=== PATIENT | male | born 1960 | race Asian ===

== ENCOUNTER → 2016-11-02 | Outpatient (CLI) | payer MEDICARE, OTHER ==
[~2016-11-02] MED LIST: AMLO-512 PO; ASPI81 PO; ATOR40TA28 PO; B CO1CAP4 PO; CARV12 PO; INSLAN SQ; SEVEC800 PO; VITAD1000 PO
== END | disposition home or self-care (01) ==
LOC: RADPV 10:13
PROVIDERS: ATTEND Hospitalist
DX: I70.0 Atherosclerosis of aorta (principal); Z95.0 Presence of cardiac pacemaker
CPT/HCPCS: 71020

== ENCOUNTER 2017-07-26 23:55 | Inpatient (IN) | payer BC, OTHER ==
[~2017-07-26] VITALS: Ht 167.6 cm; Wt 82.7 kg
[2017-07-27] MEDS ORDERED: METO2.5T2 PO
[2017-07-27 00:39] LABS: BASOPHILS % (AUTO) 0.9 % (0.0-2.0); EOSINOPHILS % (AUTO) 4.3 % (1.0-6.0); HEMATOCRIT 33.8 % (41-53); HEMOGLOBIN 11.7 g/dL (13.5-17.5); LYMPHOCYTES # (AUTO) 1.9 K/uL (1.0-4.8); LYMPHOCYTES % (AUTO) 25.5 % (22.0-44.0); MEAN CORPUSCULAR HEMOGLOBIN 31.8 pg (26.0-34.0); MEAN CORPUSCULAR HGB CONC 34.6 G/dL (31.0-37.0); MEAN CORPUSCULAR VOLUME 92 fL (80-100); MONOCYTES # (AUTO) 0.6 K/uL (0.1-1.0); MONOCYTES % (AUTO) 8.3 % (2.0-9.0); NEUTROPHILS # (AUTO) 4.5 K/uL (1.8-7.7); PLATELET COUNT (AUTO) 237 K/uL (150-450); RED BLOOD CELL COUNT(AUTO) 3.68 MIL/uL (4.50-5.90)
[2017-07-27 00:47] LABS: CALCIUM, TOTAL 9.2 mg/dL (8.8-10.5); CREATININE 4.58 mg/dL (0.60-1.30)
[2017-07-27 00:53] LABS: ALBUMIN 2.7 g/dL (3.4-5.0); BILIRUBIN,TOTAL 0.3 mg/dL (0.1-1.0); TOTAL PROTEIN, SERUM 7.8 g/dL (6.4-8.2)
[2017-07-27 00:55] LABS: LACTIC ACID 1.3 mmol/L (0.4-2.0)
[2017-07-27] MEDS ORDERED: ONDANSETRON HCL 4 MG/2 ML VIAL IVP PRN ×2 (01:30→08:15)
[2017-07-27] MEDS ORDERED: 0.9% SODIUM CHLORIDE 10 ML SYRINGE IVP PRN ×2 (01:30→08:15)
[2017-07-27] MEDS ORDERED: PIPERACILLIN/TAZO 3.375 GM/D5W 50 ML IV ONE (01:30)
[2017-07-27] MEDS ORDERED: VANCOMYCIN HCL 1 GM/D5% WATER 200 ML IV ONE (01:30)
[2017-07-27] MEDS ORDERED: ACETAMINOPHEN 325 MG TABLET PO PRN (01:30)
[2017-07-27 02:00] VITALS: BP 151/77
[2017-07-27] MEDS ORDERED: SODIUM CHLORIDE 0.9% 500 ML IV ONE (02:06)
[2017-07-27 05:00] VITALS: BP 148/83
[2017-07-27 07:55] VITALS: BP 144/84
[2017-07-27] MEDS ORDERED: ZOLPIDEM TARTRATE 5 MG TABLET PO PRN (08:15)
[2017-07-27] MEDS ORDERED: PANTOPRAZOLE SODIUM 40 MG/VIAL IVP SCH (09:00)
[2017-07-27] MEDS ORDERED: VANCOMYCIN HCL 1 GM/D5% WATER 200 ML IV PRN (09:00)
[2017-07-27] MEDS: ATORVASTATIN CALCIUM 40 MG TABLET PO SCH (09:10)
[2017-07-27] MEDS: DOCUSATE SODIUM 100 MG CAPSULE PO SCH ×2 (09:10→21:06)
[2017-07-27] MEDS: CHOLECALCIFEROL (VIT D3) 1,000 UNITS TABLET PO SCH (09:10)
[2017-07-27] MEDS: VITAMIN B COMP/VIT C/FOLIC ACID CAPSULE PO SCH (09:11)
[2017-07-27] MEDS: AmLODIPine BESYLATE 10 MG TABLET PO SCH (09:11)
[2017-07-27] MEDS: ASPIRIN 81 MG CHEWABLE TABLET PO SCH (09:11)
[2017-07-27] MEDS: HEPARIN SODIUM,PORCINE 5,000 UNITS/ML VIAL SQ SCH ×2 (09:12→16:00)
[2017-07-27] MEDS: CARVEDILOL 12.5 MG TABLET PO SCH ×2 (09:28→21:07)
[2017-07-27] MEDS: METOLAZONE 2.5 MG TABLET PO SCH (09:28)
[2017-07-27] MEDS: PIPERACILLIN SODIUM/TAZOBACTAM 2.25 GM in DEXTROSE 5%-WATER 50 ML IV SCH ×2 (09:29→18:44)
[2017-07-27] MEDS ORDERED: VANCOMYCIN HCL 1.25 GM in DEXTROSE 5%-WATER 250 ML IV ONE (11:00)
[2017-07-27 11:40] VITALS: BP 121/68
[2017-07-27 11:53] LABS: GLUCOMETER DEV NAME(LOC) PV 4E2; GLUCOSE,POINT OF CARE 74 MG/DL (70-110)
[2017-07-27] MEDS: SEVELAMER CARBONATE 800 MG TABLET PO SCH ×2 (11:56→17:30)
[2017-07-27 12:07] LABS: GLUCOMETER DEV NAME(LOC) PV 4E2; GLUCOSE,POINT OF CARE 116 MG/DL (70-110)
[2017-07-27] MEDS ORDERED: VITAMIN B COMP/VIT C/FOLIC ACID CAPSULE PO SCH (13:15)
[2017-07-27] MEDS ORDERED: DOXERCALCIFEROL 4 MCG/2 ML AMP IVP PRN (13:15)
[2017-07-27] MEDS ORDERED: SODIUM CHLORIDE 0.9% 1,000 ML IV ONE (13:39)
[2017-07-27] MEDS: NITROGLYCERIN 2% (1 GM=INCH) PACKET TP SCH (16:00)
[2017-07-27] MEDS ORDERED: SODIUM CHLORIDE 0.9% 100 ML ONE (16:09)
[2017-07-27] MEDS ORDERED: IOVERSOL 350 MG/ML 150 ML VIAL ONE (16:10)
[2017-07-27 20:08] LABS: GLUCOMETER DEV NAME(LOC) 6N 1E; GLUCOSE,POINT OF CARE 120 MG/DL (70-110)
[2017-07-27 20:10] VITALS: BP 131/73
[2017-07-27] MEDS: INSULIN GLARGINE,HUM.REC.ANLOG 100 UNITS/ML SQ SCH (21:08)
[2017-07-27 22:37] LABS: GLUCOMETER DEV NAME(LOC) 6N 2D; GLUCOSE,POINT OF CARE 111 MG/DL (70-110)
[2017-07-27 23:43] VITALS: BP 136/77
[2017-07-28] MEDS: HEPARIN SODIUM,PORCINE 5,000 UNITS/ML VIAL SQ SCH ×3 (00:26→21:01)
[2017-07-28] MEDS: NITROGLYCERIN 2% (1 GM=INCH) PACKET TP SCH ×3 (00:26→16:33)
[2017-07-28] MEDS: PIPERACILLIN SODIUM/TAZOBACTAM 2.25 GM in DEXTROSE 5%-WATER 50 ML IV SCH ×3 (00:28→16:34)
[2017-07-28] MEDS: ACETAMINOPHEN 650 MG/20.3 ML SOLUTION UDCUP PO PRN (00:37)
[2017-07-28 04:43] VITALS: BP 115/73
[2017-07-28 06:37] LABS: BASOPHILS % (AUTO) 0.9 % (0.0-2.0); EOSINOPHILS % (AUTO) 6.1 % (1.0-6.0); HEMATOCRIT 31.4 % (41-53); HEMOGLOBIN 11.1 g/dL (13.5-17.5); LYMPHOCYTES # (AUTO) 1.1 K/uL (1.0-4.8); LYMPHOCYTES % (AUTO) 19.1 % (22.0-44.0); MEAN CORPUSCULAR HEMOGLOBIN 32.2 pg (26.0-34.0); MEAN CORPUSCULAR HGB CONC 35.3 G/dL (31.0-37.0); MEAN CORPUSCULAR VOLUME 91 fL (80-100); MONOCYTES # (AUTO) 0.6 K/uL (0.1-1.0); MONOCYTES % (AUTO) 10.2 % (2.0-9.0); NEUTROPHILS # (AUTO) 3.8 K/uL (1.8-7.7); NEUTROPHILS % (AUTO) 63.7 % (40.0-70.0); PLATELET COUNT (AUTO) 202 K/uL (150-450); RED BLOOD CELL COUNT(AUTO) 3.44 MIL/uL (4.50-5.90); RED CELL DISTRIBUTION WIDTH 15.4 % (11.5-14.5)
[2017-07-28 06:57] LABS: GLUCOMETER DEV NAME(LOC) 6N 2D; GLUCOSE,POINT OF CARE 126 MG/DL (70-110)
[2017-07-28 07:28] LABS: ALBUMIN 2.4 g/dL (3.4-5.0); BILIRUBIN,TOTAL 0.5 mg/dL (0.1-1.0); CREATININE 3.23 mg/dL (0.60-1.30); MAGNESIUM 1.8 mg/dL (1.80-2.40); POTASSIUM 4.1 mmol/L (3.5-5.1); TOTAL PROTEIN, SERUM 7.2 g/dL (6.4-8.2)
[2017-07-28 07:33] VITALS: BP 122/71
[2017-07-28] MEDS ORDERED: [UNRECOGNIZED DRUG - OTHER] MISC SCH (09:00)
[2017-07-28] MEDS: [UNRECOGNIZED DRUG - OTHER] MISC SCH (09:00)
[2017-07-28] MEDS: SEVELAMER CARBONATE 800 MG TABLET PO SCH ×3 (09:22→18:11)
[2017-07-28] MEDS: AmLODIPine BESYLATE 10 MG TABLET PO SCH (09:23)
[2017-07-28] MEDS: METOLAZONE 2.5 MG TABLET PO SCH (09:23)
[2017-07-28] MEDS: CHOLECALCIFEROL (VIT D3) 1,000 UNITS TABLET PO SCH (09:24)
[2017-07-28] MEDS: DOCUSATE SODIUM 100 MG CAPSULE PO SCH ×2 (09:25→21:01)
[2017-07-28] MEDS: ASPIRIN 81 MG CHEWABLE TABLET PO SCH (09:25)
[2017-07-28] MEDS: CARVEDILOL 12.5 MG TABLET PO SCH ×2 (09:26→21:01)
[2017-07-28] MEDS: PANTOPRAZOLE SODIUM 40 MG DR TABLET PO SCH (09:26)
[2017-07-28] MEDS: ATORVASTATIN CALCIUM 40 MG TABLET PO SCH (09:26)
[2017-07-28] MEDS: VITAMIN B COMP/VIT C/FOLIC ACID CAPSULE PO SCH (09:28)
[2017-07-28 11:24] VITALS: BP 119/75
[2017-07-28 11:27] LABS: GLUCOMETER DEV NAME(LOC) 6N 1E; GLUCOSE,POINT OF CARE 108 MG/DL (70-110)
[2017-07-28 16:11] VITALS: BP 134/81
[2017-07-28 18:54] LABS: GLUCOMETER DEV NAME(LOC) 6N 1E; GLUCOSE,POINT OF CARE 144 MG/DL (70-110)
[2017-07-28 19:00] VITALS: BP 127/76
[2017-07-28] MEDS: INSULIN GLARGINE,HUM.REC.ANLOG 100 UNITS/ML SQ SCH (21:05)
[2017-07-28 21:14] LABS: GLUCOMETER DEV NAME(LOC) 6N 1E; GLUCOSE,POINT OF CARE 187 MG/DL (70-110)
[2017-07-28 23:30] VITALS: BP 136/78
[2017-07-29] MEDS: PIPERACILLIN SODIUM/TAZOBACTAM 2.25 GM in DEXTROSE 5%-WATER 50 ML IV SCH ×4 (00:46→23:35)
[2017-07-29] MEDS: NITROGLYCERIN 2% (1 GM=INCH) PACKET TP SCH ×4 (00:47→23:35)
[2017-07-29 04:00] VITALS: BP 124/72
[2017-07-29] MEDS: ACETAMINOPHEN 650 MG/20.3 ML SOLUTION UDCUP PO PRN (05:28)
[2017-07-29 05:37] LABS: GLUCOMETER DEV NAME(LOC) 6N 1E; GLUCOSE,POINT OF CARE 139 MG/DL (70-110)
[2017-07-29] MEDS: SEVELAMER CARBONATE 800 MG TABLET PO SCH ×3 (07:52→18:03)
[2017-07-29] MEDS: METOLAZONE 2.5 MG TABLET PO SCH (07:53)
[2017-07-29] MEDS: HEPARIN SODIUM,PORCINE 5,000 UNITS/ML VIAL SQ SCH ×2 (07:53→20:36)
[2017-07-29] MEDS: DOCUSATE SODIUM 100 MG CAPSULE PO SCH ×2 (07:53→20:36)
[2017-07-29] MEDS: ASPIRIN 81 MG CHEWABLE TABLET PO SCH (07:55)
[2017-07-29] MEDS: CARVEDILOL 12.5 MG TABLET PO SCH ×2 (07:56→20:36)
[2017-07-29] MEDS: ATORVASTATIN CALCIUM 40 MG TABLET PO SCH (07:56)
[2017-07-29] MEDS: VITAMIN B COMP/VIT C/FOLIC ACID CAPSULE PO SCH (07:56)
[2017-07-29] MEDS: AmLODIPine BESYLATE 10 MG TABLET PO SCH (07:56)
[2017-07-29] MEDS: PANTOPRAZOLE SODIUM 40 MG DR TABLET PO SCH (07:56)
[2017-07-29] MEDS: CHOLECALCIFEROL (VIT D3) 1,000 UNITS TABLET PO SCH (07:56)
[2017-07-29 07:58] VITALS: BP 148/93
[2017-07-29] MEDS ORDERED: SODIUM CHLORIDE 0.9% 2,000 ML IV ONE (08:45)
[2017-07-29] MEDS: [UNRECOGNIZED DRUG - OTHER] MISC SCH (09:00)
[2017-07-29 13:30] VITALS: BP 120/66
[2017-07-29] MEDS ORDERED: DOXERCALCIFEROL 4 MCG/2 ML AMP IVP ONE (14:45)
[2017-07-29] MEDS ORDERED: VANCOMYCIN HCL 1 GM/D5% WATER 200 ML IV ONE (16:00)
[2017-07-29 19:58] LABS: GLUCOMETER DEV NAME(LOC) 6N 2D; GLUCOSE,POINT OF CARE 134 MG/DL (70-110)
[2017-07-29 20:00] VITALS: BP 118/72
[2017-07-29] MEDS: INSULIN GLARGINE,HUM.REC.ANLOG 100 UNITS/ML SQ SCH (20:42)
[2017-07-29 21:08] LABS: GLUCOMETER DEV NAME(LOC) 6N 2D; GLUCOSE,POINT OF CARE 171 MG/DL (70-110)
[2017-07-29 23:39] VITALS: BP 112/48
[2017-07-30 04:00] VITALS: BP 123/85
[2017-07-30 06:18] LABS: GLUCOMETER DEV NAME(LOC) 6N 2D; GLUCOSE,POINT OF CARE 107 MG/DL (70-110)
[2017-07-30 07:51] VITALS: BP 99/54
[2017-07-30] MEDS: CHOLECALCIFEROL (VIT D3) 1,000 UNITS TABLET PO SCH (08:57)
[2017-07-30] MEDS: CARVEDILOL 12.5 MG TABLET PO SCH ×2 (08:57→19:56)
[2017-07-30] MEDS: PIPERACILLIN SODIUM/TAZOBACTAM 2.25 GM in DEXTROSE 5%-WATER 50 ML IV SCH ×2 (08:57→16:08)
[2017-07-30] MEDS: SEVELAMER CARBONATE 800 MG TABLET PO SCH ×3 (08:57→18:05)
[2017-07-30] MEDS: VITAMIN B COMP/VIT C/FOLIC ACID CAPSULE PO SCH (08:57)
[2017-07-30] MEDS: AmLODIPine BESYLATE 10 MG TABLET PO SCH (08:57)
[2017-07-30] MEDS: ASPIRIN 81 MG CHEWABLE TABLET PO SCH (08:58)
[2017-07-30] MEDS: HEPARIN SODIUM,PORCINE 5,000 UNITS/ML VIAL SQ SCH ×2 (08:58→19:57)
[2017-07-30] MEDS: DOCUSATE SODIUM 100 MG CAPSULE PO SCH ×2 (08:58→19:56)
[2017-07-30] MEDS: ATORVASTATIN CALCIUM 40 MG TABLET PO SCH (08:58)
[2017-07-30] MEDS: PANTOPRAZOLE SODIUM 40 MG DR TABLET PO SCH (08:58)
[2017-07-30] MEDS: NITROGLYCERIN 2% (1 GM=INCH) PACKET TP SCH ×3 (08:59→23:18)
[2017-07-30] MEDS: [UNRECOGNIZED DRUG - OTHER] MISC SCH (09:00)
[2017-07-30 11:35] VITALS: BP 112/86
[2017-07-30 15:35] VITALS: BP 113/75
[2017-07-30 19:32] LABS: GLUCOMETER DEV NAME(LOC) 6N 1E; GLUCOSE,POINT OF CARE 110 MG/DL (70-110)
[2017-07-30 19:32] LABS: GLUCOMETER DEV NAME(LOC) 6N 1E; GLUCOSE,POINT OF CARE 170 MG/DL (70-110)
[2017-07-30 19:55] VITALS: BP 103/76
[2017-07-30] MEDS: INSULIN GLARGINE,HUM.REC.ANLOG 100 UNITS/ML SQ SCH (20:57)
[2017-07-30 21:43] LABS: GLUCOMETER DEV NAME(LOC) 6N 2D; GLUCOSE,POINT OF CARE 167 MG/DL (70-110)
[2017-07-30 23:45] VITALS: BP 110/67
[2017-07-31] MEDS: PIPERACILLIN SODIUM/TAZOBACTAM 2.25 GM in DEXTROSE 5%-WATER 50 ML IV SCH ×2 (00:47→08:30)
[2017-07-31 05:45] VITALS: BP 132/72
[2017-07-31 06:35] LABS: EOSINOPHILS % (AUTO) 4.2 % (1.0-6.0); HEMATOCRIT 32.4 % (41-53); HEMOGLOBIN 11.3 g/dL (13.5-17.5); LYMPHOCYTES % (AUTO) 16.9 % (22.0-44.0); MEAN CORPUSCULAR VOLUME 92 fL (80-100); MONOCYTES # (AUTO) 0.7 K/uL (0.1-1.0); NEUTROPHILS % (AUTO) 65.9 % (40.0-70.0); PLATELET COUNT (AUTO) 195 K/uL (150-450); RED BLOOD CELL COUNT(AUTO) 3.54 MIL/uL (4.50-5.90); RED CELL DISTRIBUTION WIDTH 15.5 % (11.5-14.5)
[2017-07-31 06:55] LABS: CALCIUM, TOTAL 9.4 mg/dL (8.8-10.5); CREATININE 5.75 mg/dL (0.60-1.30); POTASSIUM 3.9 mmol/L (3.5-5.1)
[2017-07-31 08:10] VITALS: BP 120/77
[2017-07-31] MEDS: PANTOPRAZOLE SODIUM 40 MG DR TABLET PO SCH (08:30)
[2017-07-31] MEDS: AmLODIPine BESYLATE 5 MG TABLET PO SCH (08:30)
[2017-07-31] MEDS: ATORVASTATIN CALCIUM 40 MG TABLET PO SCH (08:30)
[2017-07-31] MEDS: SEVELAMER CARBONATE 800 MG TABLET PO SCH ×3 (08:30→17:17)
[2017-07-31] MEDS: CHOLECALCIFEROL (VIT D3) 1,000 UNITS TABLET PO SCH (08:30)
[2017-07-31] MEDS: HEPARIN SODIUM,PORCINE 5,000 UNITS/ML VIAL SQ SCH (08:30)
[2017-07-31] MEDS: ASPIRIN 81 MG CHEWABLE TABLET PO SCH (08:30)
[2017-07-31] MEDS: VITAMIN B COMP/VIT C/FOLIC ACID CAPSULE PO SCH (08:30)
[2017-07-31] MEDS: DOCUSATE SODIUM 100 MG CAPSULE PO SCH ×3 (08:30→20:53)
[2017-07-31] MEDS: CARVEDILOL 12.5 MG TABLET PO SCH ×2 (08:30→20:53)
[2017-07-31] MEDS: NITROGLYCERIN 2% (1 GM=INCH) PACKET TP SCH ×3 (08:31→23:59)
[2017-07-31] MEDS: [UNRECOGNIZED DRUG - OTHER] MISC SCH (09:00)
[2017-07-31 12:00] VITALS: BP 128/76
[2017-07-31 13:57] LABS: GLUCOMETER DEV NAME(LOC) 6N 1E; GLUCOSE,POINT OF CARE 138 MG/DL (70-110)
[2017-07-31 16:25] VITALS: BP 120/69
[2017-07-31 16:58] LABS: GLUCOMETER DEV NAME(LOC) 6N 2D; GLUCOSE,POINT OF CARE 117 MG/DL (70-110)
[2017-07-31] MEDS: CefTRIAXone SODIUM 2 GM in DEXTROSE 5%-WATER 20 ML IV SCH (17:17)
[2017-07-31 19:34] VITALS: BP 137/78
[2017-07-31 19:47] LABS: GLUCOMETER DEV NAME(LOC) 6N 1E; GLUCOSE,POINT OF CARE 105 MG/DL (70-110)
[2017-07-31] MEDS: INSULIN GLARGINE,HUM.REC.ANLOG 100 UNITS/ML SQ SCH (20:53)
[2017-07-31 23:39] VITALS: BP 141/73
[2017-08-01] VITALS (12 sets, daily range): BP systolic 108–154; BP diastolic 67–89
[2017-08-01 00:02] LABS: GLUCOMETER DEV NAME(LOC) 6N 2D; GLUCOSE,POINT OF CARE 144 MG/DL (70-110)
[2017-08-01 05:20] LABS: EOSINOPHILS % (AUTO) 4.2 % (1.0-6.0); HEMATOCRIT 33.3 % (41-53); HEMOGLOBIN 11.5 g/dL (13.5-17.5); LYMPHOCYTES % (AUTO) 15.2 % (22.0-44.0); MEAN CORPUSCULAR HEMOGLOBIN 31.6 pg (26.0-34.0); MEAN CORPUSCULAR HGB CONC 34.5 G/dL (31.0-37.0); MEAN CORPUSCULAR VOLUME 92 fL (80-100); MONOCYTES # (AUTO) 0.6 K/uL (0.1-1.0); NEUTROPHILS # (AUTO) 4.5 K/uL (1.8-7.7); NEUTROPHILS % (AUTO) 69.6 % (40.0-70.0); PLATELET COUNT (AUTO) 198 K/uL (150-450); RED BLOOD CELL COUNT(AUTO) 3.62 MIL/uL (4.50-5.90); RED CELL DISTRIBUTION WIDTH 15.4 % (11.5-14.5)
[2017-08-01 05:32] LABS: ALBUMIN 2.7 g/dL (3.4-5.0); BILIRUBIN,TOTAL 0.3 mg/dL (0.1-1.0); CALCIUM, TOTAL 9.6 mg/dL (8.8-10.5); CREATININE 6.55 mg/dL (0.60-1.30); MAGNESIUM 2.3 mg/dL (1.80-2.40); PHOSPHORUS 5.7 mg/dL (2.5-4.9); POTASSIUM 4.2 mmol/L (3.5-5.1); TOTAL PROTEIN, SERUM 7.9 g/dL (6.4-8.2); VANCOMYCIN,RANDOM 18.9 mcg/mL (25.0-50.0)
[2017-08-01 06:23] LABS: GLUCOMETER DEV NAME(LOC) 6N 2D; GLUCOSE,POINT OF CARE 125 MG/DL (70-110)
[2017-08-01] MEDS: SEVELAMER CARBONATE 800 MG TABLET PO SCH ×3 (08:00→18:25)
[2017-08-01] MEDS: NITROGLYCERIN 2% (1 GM=INCH) PACKET TP SCH ×2 (08:00→18:26)
[2017-08-01] MEDS: AmLODIPine BESYLATE 5 MG TABLET PO SCH (09:00)
[2017-08-01] MEDS: VITAMIN B COMP/VIT C/FOLIC ACID CAPSULE PO SCH (09:00)
[2017-08-01] MEDS: ATORVASTATIN CALCIUM 40 MG TABLET PO SCH (09:00)
[2017-08-01] MEDS: CARVEDILOL 12.5 MG TABLET PO SCH ×2 (09:00→20:20)
[2017-08-01] MEDS: PANTOPRAZOLE SODIUM 40 MG DR TABLET PO SCH (09:00)
[2017-08-01] MEDS: CHOLECALCIFEROL (VIT D3) 1,000 UNITS TABLET PO SCH (09:00)
[2017-08-01] MEDS: ASPIRIN 81 MG CHEWABLE TABLET PO SCH (09:00)
[2017-08-01] MEDS: DOCUSATE SODIUM 100 MG CAPSULE PO SCH ×2 (09:00→20:22)
[2017-08-01] MEDS ORDERED: SODIUM CHLORIDE 0.9% 1,000 ML IV ONE ×2 (10:59→11:00)
[2017-08-01] MEDS ORDERED: LIDOCAINE HCL/PF 1% 30 ML VIAL ONE (11:18)
[2017-08-01] MEDS ORDERED: BUPIVACAINE HCL/PF 0.5% 30 ML VIAL ONE (11:18)
[2017-08-01 11:32] LABS: GLUCOMETER DEV NAME(LOC) 6N 1E; GLUCOSE,POINT OF CARE 97 MG/DL (70-110)
[2017-08-01] MEDS ORDERED: THROMBIN, BOVINE 20000 UNITS/VIAL POWDER TP ONE (12:50)
[2017-08-01] MEDS ORDERED: GELATIN SPONGE,ABSORBABLE 50 MM TP ONE (12:50)
[2017-08-01] MEDS: [UNRECOGNIZED DRUG - OTHER] MISC SCH (14:35)
[2017-08-01] MEDS: ACETAMINOPHEN 650 MG/20.3 ML SOLUTION UDCUP PO PRN (16:33)
[2017-08-01] MEDS: CefTRIAXone SODIUM 2 GM in DEXTROSE 5%-WATER 20 ML IV SCH (18:26)
[2017-08-01] MEDS: MORPHINE SULFATE 4 MG/ML SYRINGE IVP PRN ×2 (18:33→23:03)
[2017-08-01 19:58] LABS: GLUCOMETER DEV NAME(LOC) 5S 1M; GLUCOSE,POINT OF CARE 102 MG/DL (70-110)
[2017-08-01] MEDS: INSULIN GLARGINE,HUM.REC.ANLOG 100 UNITS/ML SQ SCH (20:19)
[2017-08-02] VITALS (7 sets, daily range): BP systolic 114–144; BP diastolic 57–85
[2017-08-02] MEDS: NITROGLYCERIN 2% (1 GM=INCH) PACKET TP SCH ×3 (00:27→14:40)
[2017-08-02 03:28] LABS: GLUCOMETER DEV NAME(LOC) 5S 1M; GLUCOSE,POINT OF CARE 103 MG/DL (70-110)
[2017-08-02] MEDS ORDERED: MIDAZOLAM HCL 2 MG/2 ML VIAL IVP ONE (04:54)
[2017-08-02] MEDS ORDERED: ONDANSETRON HCL 4 MG/2 ML VIAL IVP ONE (04:54)
[2017-08-02] MEDS ORDERED: LIDOCAINE HCL/PF 2% 5 ML SYRINGE IVP ONE (04:54)
[2017-08-02] MEDS ORDERED: FentaNYL CITRATE-PF 100 MCG/2 ML VIAL IVP ONE (04:54)
[2017-08-02] MEDS ORDERED: PROPOFOL 1% 20 ML VIAL IVP ONE (04:54)
[2017-08-02] MEDS: MORPHINE SULFATE 4 MG/ML SYRINGE IVP PRN ×4 (05:26→21:03)
[2017-08-02] MEDS ORDERED: VANCOMYCIN HCL 1 GM/D5% WATER 200 ML IV ONE (06:00)
[2017-08-02 07:20] LABS: BASOPHILS % (AUTO) 0.6 % (0.0-2.0); EOSINOPHILS % (AUTO) 1.6 % (1.0-6.0); HEMATOCRIT 36.2 % (41-53); HEMOGLOBIN 12.9 g/dL (13.5-17.5); LYMPHOCYTES # (AUTO) 1.2 K/uL (1.0-4.8); LYMPHOCYTES % (AUTO) 14.2 % (22.0-44.0); MEAN CORPUSCULAR HEMOGLOBIN 32.4 pg (26.0-34.0); MEAN CORPUSCULAR HGB CONC 35.5 G/dL (31.0-37.0); MEAN CORPUSCULAR VOLUME 91 fL (80-100); MONOCYTES # (AUTO) 1.3 K/uL (0.1-1.0); NEUTROPHILS # (AUTO) 5.8 K/uL (1.8-7.7); NEUTROPHILS % (AUTO) 68.6 % (40.0-70.0); PLATELET COUNT (AUTO) 191 K/uL (150-450); RED BLOOD CELL COUNT(AUTO) 3.96 MIL/uL (4.50-5.90); RED CELL DISTRIBUTION WIDTH 15.3 % (11.5-14.5)
[2017-08-02 07:42] LABS: BILIRUBIN,TOTAL 0.6 mg/dL (0.1-1.0); CALCIUM, TOTAL 9.4 mg/dL (8.8-10.5); CREATININE 4.46 mg/dL (0.60-1.30); MAGNESIUM 1.8 mg/dL (1.80-2.40); POTASSIUM 3.9 mmol/L (3.5-5.1); TOTAL PROTEIN, SERUM 8.9 g/dL (6.4-8.2)
[2017-08-02] MEDS: CHOLECALCIFEROL (VIT D3) 1,000 UNITS TABLET PO SCH (09:14)
[2017-08-02] MEDS: VITAMIN B COMP/VIT C/FOLIC ACID CAPSULE PO SCH (09:14)
[2017-08-02] MEDS: AmLODIPine BESYLATE 5 MG TABLET PO SCH (09:14)
[2017-08-02] MEDS: PANTOPRAZOLE SODIUM 40 MG DR TABLET PO SCH (09:14)
[2017-08-02] MEDS: ASPIRIN 81 MG CHEWABLE TABLET PO SCH (09:14)
[2017-08-02] MEDS: DOCUSATE SODIUM 100 MG CAPSULE PO SCH ×2 (09:14→21:02)
[2017-08-02] MEDS: ATORVASTATIN CALCIUM 40 MG TABLET PO SCH (09:14)
[2017-08-02] MEDS: SEVELAMER CARBONATE 800 MG TABLET PO SCH ×3 (09:15→18:42)
[2017-08-02] MEDS: CARVEDILOL 12.5 MG TABLET PO SCH ×2 (09:15→21:02)
[2017-08-02] MEDS: CefTRIAXone SODIUM 2 GM in DEXTROSE 5%-WATER 20 ML IV SCH (14:42)
[2017-08-02 15:33] LABS: GLUCOMETER DEV NAME(LOC) 5N 1P; GLUCOSE,POINT OF CARE 110 MG/DL (70-110)
[2017-08-02 15:33] LABS: GLUCOMETER DEV NAME(LOC) 5N 1P; GLUCOSE,POINT OF CARE 146 MG/DL (70-110)
[2017-08-02] MEDS: INSULIN GLARGINE,HUM.REC.ANLOG 100 UNITS/ML SQ SCH (21:02)
[2017-08-02 23:24] LABS: GLUCOMETER DEV NAME(LOC) 5N 2S; GLUCOSE,POINT OF CARE 105 MG/DL (70-110)
[2017-08-02 23:24] LABS: GLUCOMETER DEV NAME(LOC) 5N 1P; GLUCOSE,POINT OF CARE 133 MG/DL (70-110)
[2017-08-03] MEDS: NITROGLYCERIN 2% (1 GM=INCH) PACKET TP SCH ×3 (00:24→15:48)
[2017-08-03 04:15] VITALS: BP 116/73
[2017-08-03 06:34] LABS: BASOPHILS % (AUTO) 0.8 % (0.0-2.0); EOSINOPHILS % (AUTO) 1.3 % (1.0-6.0); HEMATOCRIT 32.8 % (41-53); HEMOGLOBIN 11.6 g/dL (13.5-17.5); LYMPHOCYTES # (AUTO) 1.1 K/uL (1.0-4.8); LYMPHOCYTES % (AUTO) 11.2 % (22.0-44.0); MEAN CORPUSCULAR HEMOGLOBIN 32.3 pg (26.0-34.0); MEAN CORPUSCULAR HGB CONC 35.3 G/dL (31.0-37.0); MEAN CORPUSCULAR VOLUME 92 fL (80-100); MONOCYTES # (AUTO) 1.1 K/uL (0.1-1.0); NEUTROPHILS # (AUTO) 7.5 K/uL (1.8-7.7); NEUTROPHILS % (AUTO) 75.7 % (40.0-70.0); PLATELET COUNT (AUTO) 162 K/uL (150-450); RED BLOOD CELL COUNT(AUTO) 3.58 MIL/uL (4.50-5.90); RED CELL DISTRIBUTION WIDTH 15.6 % (11.5-14.5)
[2017-08-03 07:00] LABS: ALBUMIN 2.7 g/dL (3.4-5.0); BILIRUBIN,TOTAL 0.4 mg/dL (0.1-1.0); CALCIUM, TOTAL 9.2 mg/dL (8.8-10.5); CREATININE 5.96 mg/dL (0.60-1.30); MAGNESIUM 2.1 mg/dL (1.80-2.40); POTASSIUM 3.8 mmol/L (3.5-5.1); TOTAL PROTEIN, SERUM 8.3 g/dL (6.4-8.2)
[2017-08-03 07:06] VITALS: BP 98/57
[2017-08-03] MEDS ORDERED: SODIUM CHLORIDE 0.9% 2,000 ML IV ONE (07:41)
[2017-08-03] MEDS: ACETAMINOPHEN 650 MG/20.3 ML SOLUTION UDCUP PO PRN (08:01)
[2017-08-03] MEDS: DOCUSATE SODIUM 100 MG CAPSULE PO SCH ×2 (08:26→19:47)
[2017-08-03] MEDS: CHOLECALCIFEROL (VIT D3) 1,000 UNITS TABLET PO SCH (08:26)
[2017-08-03] MEDS: ASPIRIN 81 MG CHEWABLE TABLET PO SCH (08:26)
[2017-08-03] MEDS: PANTOPRAZOLE SODIUM 40 MG DR TABLET PO SCH (08:26)
[2017-08-03] MEDS: ATORVASTATIN CALCIUM 40 MG TABLET PO SCH (08:26)
[2017-08-03] MEDS: VITAMIN B COMP/VIT C/FOLIC ACID CAPSULE PO SCH (08:26)
[2017-08-03] MEDS: SEVELAMER CARBONATE 800 MG TABLET PO SCH ×3 (08:26→18:13)
[2017-08-03] MEDS: CARVEDILOL 12.5 MG TABLET PO SCH ×2 (08:27→19:47)
[2017-08-03] MEDS: AmLODIPine BESYLATE 5 MG TABLET PO SCH (08:27)
[2017-08-03 11:33] VITALS: BP 106/69
[2017-08-03 13:08] LABS: GLUCOMETER DEV NAME(LOC) 5N 2S; GLUCOSE,POINT OF CARE 96 MG/DL (70-110)
[2017-08-03 15:31] VITALS: BP 118/72
[2017-08-03] MEDS: MORPHINE SULFATE 4 MG/ML SYRINGE IVP PRN ×2 (15:47→19:47)
[2017-08-03] MEDS: CefTRIAXone SODIUM 2 GM in DEXTROSE 5%-WATER 20 ML IV SCH (15:48)
[2017-08-03 19:10] VITALS: BP 120/70
[2017-08-03] MEDS: INSULIN GLARGINE,HUM.REC.ANLOG 100 UNITS/ML SQ SCH (20:46)
[2017-08-04 00:01] VITALS: BP 124/66
[2017-08-04] MEDS: NITROGLYCERIN 2% (1 GM=INCH) PACKET TP SCH ×4 (00:06→16:00)
[2017-08-04] MEDS: MORPHINE SULFATE 4 MG/ML SYRINGE IVP PRN ×2 (00:36→08:44)
[2017-08-04 05:11] VITALS: BP 100/73
[2017-08-04 06:56] LABS: ALBUMIN 2.8 g/dL (3.4-5.0); BILIRUBIN,TOTAL 0.4 mg/dL (0.1-1.0); CALCIUM, TOTAL 9.2 mg/dL (8.8-10.5); CREATININE 4.99 mg/dL (0.60-1.30); POTASSIUM 3.3 mmol/L (3.5-5.1); TOTAL PROTEIN, SERUM 8.9 g/dL (6.4-8.2)
[2017-08-04 07:08] LABS: BASOPHILS % (AUTO) 0.8 % (0.0-2.0); EOSINOPHILS % (AUTO) 2.5 % (1.0-6.0); HEMATOCRIT 34.6 % (41-53); LYMPHOCYTES # (AUTO) 1.4 K/uL (1.0-4.8); LYMPHOCYTES % (AUTO) 17.1 % (22.0-44.0); MEAN CORPUSCULAR HGB CONC 34.8 G/dL (31.0-37.0); MEAN CORPUSCULAR VOLUME 92 fL (80-100); MONOCYTES # (AUTO) 0.9 K/uL (0.1-1.0); MONOCYTES % (AUTO) 11.3 % (2.0-9.0); NEUTROPHILS # (AUTO) 5.5 K/uL (1.8-7.7); NEUTROPHILS % (AUTO) 68.3 % (40.0-70.0); PLATELET COUNT (AUTO) 188 K/uL (150-450); RED BLOOD CELL COUNT(AUTO) 3.76 MIL/uL (4.50-5.90); RED CELL DISTRIBUTION WIDTH 15.7 % (11.5-14.5)
[2017-08-04 07:43] LABS: GLUCOMETER DEV NAME(LOC) 5N 2S; GLUCOSE,POINT OF CARE 108 MG/DL (70-110)
[2017-08-04 08:10] VITALS: BP 114/68
[2017-08-04] MEDS ORDERED: POTASSIUM CHLORIDE 20 MEQ ER TABLET PO ONE (08:15)
[2017-08-04] MEDS: SEVELAMER CARBONATE 800 MG TABLET PO SCH ×3 (08:42→18:18)
[2017-08-04] MEDS: ATORVASTATIN CALCIUM 40 MG TABLET PO SCH (08:42)
[2017-08-04] MEDS: CHOLECALCIFEROL (VIT D3) 1,000 UNITS TABLET PO SCH (08:42)
[2017-08-04] MEDS: PANTOPRAZOLE SODIUM 40 MG DR TABLET PO SCH (08:43)
[2017-08-04] MEDS: DOCUSATE SODIUM 100 MG CAPSULE PO SCH ×3 (08:43→20:23)
[2017-08-04] MEDS: ASPIRIN 81 MG CHEWABLE TABLET PO SCH (08:43)
[2017-08-04] MEDS: VITAMIN B COMP/VIT C/FOLIC ACID CAPSULE PO SCH (08:45)
[2017-08-04] MEDS: CARVEDILOL 12.5 MG TABLET PO SCH ×2 (08:45→20:23)
[2017-08-04] MEDS: [UNRECOGNIZED DRUG - OTHER] MISC SCH ×2 (09:00→12:19)
[2017-08-04 11:32] VITALS: BP 108/66
[2017-08-04 12:12] LABS: GLUCOMETER DEV NAME(LOC) 5S 1M; GLUCOSE,POINT OF CARE 101 MG/DL (70-110)
[2017-08-04 12:13] LABS: GLUCOMETER DEV NAME(LOC) 5S 1M; GLUCOSE,POINT OF CARE 166 MG/DL (70-110)
[2017-08-04 12:13] LABS: GLUCOMETER DEV NAME(LOC) 5S 1M; GLUCOSE,POINT OF CARE 124 MG/DL (70-110)
[2017-08-04] MEDS: AmLODIPine BESYLATE 5 MG TABLET PO SCH (12:18)
[2017-08-04 16:04] VITALS: BP 119/68
[2017-08-04] MEDS: CefTRIAXone SODIUM 2 GM in DEXTROSE 5%-WATER 20 ML IV SCH (16:46)
[2017-08-04 19:17] VITALS: BP 118/69
[2017-08-04] MEDS ORDERED: DSS100 PO (19:18)
[2017-08-04] MEDS ORDERED: CEFX1I IVP (19:18)
[2017-08-04] MEDS ORDERED: PANT20TA12 PO (19:19)
[2017-08-04] MEDS ORDERED: NTP60T TD (19:19)
[2017-08-04] MEDS ORDERED: ACET-2902 PO (19:20)
[2017-08-04] MEDS ORDERED: DOXE2VIA IV (19:22)
[2017-08-04] MEDS ORDERED: MORP2SYR IVP (19:23)
[2017-08-04] MEDS ORDERED: ONDA4 IVP (19:24)
[2017-08-04] MEDS ORDERED: [UNRECOGNIZED DRUG - CODE] IV (19:25)
[2017-08-04] MEDS ORDERED: ZOLP5 PO (19:25)
[2017-08-04 19:53] LABS: GLUCOMETER DEV NAME(LOC) 5S 1M; GLUCOSE,POINT OF CARE 134 MG/DL (70-110)
[2017-08-04 19:53] LABS: GLUCOMETER DEV NAME(LOC) 5N 2S; GLUCOSE,POINT OF CARE 123 MG/DL (70-110)
[2017-08-04] MEDS: INSULIN GLARGINE,HUM.REC.ANLOG 100 UNITS/ML SQ SCH (20:25)
[2017-08-04 21:22] LABS: GLUCOMETER DEV NAME(LOC) 5S 1M; GLUCOSE,POINT OF CARE 181 MG/DL (70-110)
== END 2017-08-04 21:10 | DRG 255 ==
LOC: EMS 23:55 → 4E 07-27 01:27 → 6N 07-27 18:15 → 5S 08-01 11:46
PROVIDERS: ADMIT Internal Medicine; ATTEND Internal Medicine
PROC: 5A1D70Z Performance of Urinary Filtration, Intermittent, Less than 6 Hours Per Day (ICD-10-PCS; 2017-07-27)
PROC: 5A1D70Z Performance of Urinary Filtration, Intermittent, Less than 6 Hours Per Day (ICD-10-PCS; 2017-07-29)
PROC: 5A1D70Z Performance of Urinary Filtration, Intermittent, Less than 6 Hours Per Day (ICD-10-PCS; 2017-08-01)
PROC: 0QBP0ZZ Excision of Left Metatarsal, Open Approach (ICD-10-PCS; 2017-08-01)
PROC: 0Y6Q0Z0 Detachment at Left 1st Toe, Complete, Open Approach (ICD-10-PCS; principal; 2017-08-01 12:00)
PROC: 5A1D70Z Performance of Urinary Filtration, Intermittent, Less than 6 Hours Per Day (ICD-10-PCS; 2017-08-03)
DX: E11.52 Type 2 diabetes mellitus with diabetic peripheral angiopathy with gangrene (principal); N18.6 End stage renal disease; I13.2 Hypertensive heart and chronic kidney disease with heart failure and with stage 5 chronic kidney disease, or end stage renal disease; R78.81 Bacteremia; M86.8X7 Other osteomyelitis, ankle and foot; I50.20 Unspecified systolic (congestive) heart failure; E11.21 Type 2 diabetes mellitus with diabetic nephropathy; E11.621 Type 2 diabetes mellitus with foot ulcer; L97.529 Non-pressure chronic ulcer of other part of left foot with unspecified severity; I25.10 Atherosclerotic heart disease of native coronary artery without angina pectoris; E78.00 Pure hypercholesterolemia, unspecified; E11.22 Type 2 diabetes mellitus with diabetic chronic kidney disease; B95.8 Unspecified staphylococcus as the cause of diseases classified elsewhere; E11.69 Type 2 diabetes mellitus with other specified complication; E55.9 Vitamin D deficiency, unspecified; E78.5 Hyperlipidemia, unspecified; G40.909 Epilepsy, unspecified, not intractable, without status epilepticus; I25.5 Ischemic cardiomyopathy; Z89.421 Acquired absence of other right toe(s); Z95.810 Presence of automatic (implantable) cardiac defibrillator; Z95.820 Peripheral vascular angioplasty status with implants and grafts; Z99.2 Dependence on renal dialysis; Z88.1 Allergy status to other antibiotic agents; Z79.4 Long term (current) use of insulin; Z83.3 Family history of diabetes mellitus; Z82.49 Family history of ischemic heart disease and other diseases of the circulatory system
CPT/HCPCS: 73701; 83605; 83735; 84100; 84132; 84145; 85651; 86140; 86704; 86706; 87040; 87070; 87081; 87205; 87340; 88305; 88311; 90935; 93005; 93041; 93306; 93925; 96365; 96368; 97110; 97116; 97161; 97166; 97530; 97535; 99285; C9113; J0696; J1270; J1644; J1815; J2250; J2270; J2405; J2543; J2704; J3010; J3370; J3490; J7030; J7040; J7050; J7060

== ENCOUNTER 2022-04-07 15:33 | Emergency (ER) | payer MEDICARE, OTHER ==
[~2022-04-07] VITALS: Ht 165.1 cm; Wt 77.3 kg
[~2022-04-07 15:33] MED LIST changes: +ACET-3207 PO; +AMLO-258 PO; -AMLO-512 PO; +ASPI-1450 PO; -ASPI81 PO; +CEFX1I IVP; +CHOL100018 PO; +DOXE2VIA IV; +DSS100 PO; +MORP2SYR IVP; +ONDA-104 IVP; +PANT20TA18 PO; +SEVE800T17 PO; -SEVEC800 PO; -VITAD1000 PO; +ZOLP-280 PO; +[UNRECOGNIZED DRUG - CODE] IV; +[UNRECOGNIZED DRUG - CODE] TD
[2022-04-07] MEDS ORDERED: AMIODARONE HCL 360 MG in DEXTROSE 5%-WATER 242.8 ML IV ONE (16:00)
[2022-04-07] MEDS ORDERED: AMIODARONE HCL 150 MG in DEXTROSE 5%-WATER 97 ML IV ONE (16:00)
[2022-04-07 16:06] LABS: BASOPHILS % (AUTO) 0.5 % (0.0-2.0); EOSINOPHILS % (AUTO) 0.3 % (1.0-6.0); HEMATOCRIT 38.5 % (41-53); LYMPHOCYTES # (AUTO) 2.3 K/uL (1.0-4.8); LYMPHOCYTES % (AUTO) 15.3 % (22.0-44.0); MEAN CORPUSCULAR HEMOGLOBIN 30.8 pg (26.0-34.0); MEAN CORPUSCULAR HGB CONC 31.2 G/dL (31.0-37.0); MEAN CORPUSCULAR VOLUME 99 fL (80-100); MONOCYTES # (AUTO) 0.7 K/uL (0.1-1.0); MONOCYTES % (AUTO) 4.5 % (2.0-9.0); NEUTROPHILS # (AUTO) 11.8 K/uL (1.8-7.7); NEUTROPHILS % (AUTO) 79.4 % (40.0-70.0); PLATELET COUNT (AUTO) 216 K/uL (150-450)
[2022-04-07] MEDS ORDERED: INSULIN REGULAR, HUMAN 100 UNITS/ML IVP ONE (16:15)
[2022-04-07] MEDS ORDERED: DEXTROSE 50%-WATER 25 GM/50 ML SYRINGE IVP ONE (16:15)
[2022-04-07 16:40] VITALS: BP 115/70
[2022-04-07 17:01] LABS: POTASSIUM 7.1 mmol/L (3.5-5.1)
[2022-04-07 17:02] LABS: CALCIUM, TOTAL 9.7 mg/dL (8.8-10.5); CREATININE 13.41 mg/dL (0.60-1.30)
[2022-04-07 17:28] LABS: ALBUMIN 2.3 g/dL (3.4-5.0); BILIRUBIN,TOTAL 1.2 mg/dL (0.1-1.0); MAGNESIUM 3.2 mg/dL (1.80-2.40); TOTAL PROTEIN, SERUM 7.1 g/dL (6.4-8.2)
[2022-04-07 17:42] LABS: PHOSPHORUS 15.3 mg/dL (2.5-4.9)
[2022-04-07] MEDS ORDERED: AMIODARONE HCL 540 MG in DEXTROSE 5%-WATER 239.2 ML IV ONE (22:00)
[2022-04-08] MEDS ORDERED: AMIODARONE HCL 750 MG in DEXTROSE 5%-WATER 485 ML IV SCH (16:00)
== END 2022-04-07 20:30 ==
LOC: EDUNIT# 15:33 → EMS 15:39
DX: I46.9 Cardiac arrest, cause unspecified (principal); I25.10 Atherosclerotic heart disease of native coronary artery without angina pectoris; I11.0 Hypertensive heart disease with heart failure; E11.9 Type 2 diabetes mellitus without complications; E78.00 Pure hypercholesterolemia, unspecified; I13.2 Hypertensive heart and chronic kidney disease with heart failure and with stage 5 chronic kidney disease, or end stage renal disease; N18.6 End stage renal disease; F17.210 Nicotine dependence, cigarettes, uncomplicated; Z98.890 Other specified postprocedural states; Z99.2 Dependence on renal dialysis
CPT/HCPCS: 71045; 80053; 83735; 84100; 84484; 85025; 92950; 93005; 94002; 99291; J0282; J7060; 36415-L1; 36415-TC